=== PATIENT | male | born 1985 | race Caucasian/White ===

== ENCOUNTER 2017-06-22 10:14 | Emergency (ER) | payer OTHER ==
[~2017-06-22] VITALS: Ht 165.1 cm; Wt 70.3 kg
[~2017-06-22 10:14] MED LIST: ADDERALL 30 MG30 MG PO; CLONAZEPAM 1 MG1 M1 PO
[2017-06-22 10:53] LABS: URINE BILIRUBIN NEGATIVE (Negative); URINE BLOOD NEGATIVE (Negative); URINE CLARITY CLEAR; URINE COLOR YELLOW; URINE GLUCOSE-RANDOM TRACE (Negative); URINE KETONES NEGATIVE (Negative); URINE LEUKOCYTES-REFLEX NEGATIVE (Negative); URINE NITRITE-REFLEX NEGATIVE (Negative); URINE PROTEIN 2+ (Negative); URINE SPECIFIC GRAVITY >= 1.030 (1.005-1.030); URINE UROBILINOGEN 0.2 E.U./dl (0.2-1.0)
[2017-06-22 11:05] LABS: HYALINE CASTS 0-3 Few /LPF (None Seen)
[2017-06-22 11:06] LABS: MUCUS 0-3 Light strn/LPF (None Seen); URINE WBC-REFLEX 0-5 Rare /HPF (0-5)
[2017-06-22 11:07] LABS: BACTERIA-REFLEX None Seen /HPF (None Seen); CRYSTALS None Seen /LPF (None Seen); SQUAMOUS NONE SEEN /LPF (0-3)
[2017-06-22] MEDS ORDERED: DOXYCYCLINE MO100 M1 PO (11:07)
[2017-06-22 11:08] LABS: URINE RBC None Seen /HPF (0-2)
[2017-06-22 11:47] VITALS: BP 132/82
== END 2017-06-22 11:48 | disposition home or self-care (01) ==
LOC: M.ERS 10:14
PROVIDERS: Physician Assistant
DX: Z20.2 Contact with and (suspected) exposure to infections with a predominantly sexual mode of transmission (principal); R36.9 Urethral discharge, unspecified; F90.9 Attention-deficit hyperactivity disorder, unspecified type; Z88.0 Allergy status to penicillin; Z88.6 Allergy status to analgesic agent

== ENCOUNTER 2017-10-22 12:38 | Emergency (ER) | payer OTHER ==
[~2017-10-22] VITALS: Ht 165.1 cm; Wt 68.0 kg
[~2017-10-22 12:38] MED LIST changes: +DOXYCYCLINE MO100 M1 PO
[2017-10-22 15:15] VITALS: BP 120/77
== END 2017-10-22 15:15 | disposition home or self-care (01) ==
LOC: M.ERS 12:38
DX: S51.811A Laceration without foreign body of right forearm, initial encounter (principal); F90.9 Attention-deficit hyperactivity disorder, unspecified type; F17.210 Nicotine dependence, cigarettes, uncomplicated; Z88.0 Allergy status to penicillin; Z88.6 Allergy status to analgesic agent; W26.8XXA Contact with other sharp object(s), not elsewhere classified, initial encounter; Y93.89 Activity, other specified; Y92.89 Other specified places as the place of occurrence of the external cause; Y99.8 Other external cause status